=== PATIENT | male | born 1970 | race Caucasian/White ===

== ENCOUNTER 2019-05-29 10:44 | Emergency (ER) | payer MEDICAID ==
[~2019-05-29] VITALS: Ht 180 cm; Wt 109.0 kg
[2019-05-29] MEDS ORDERED: LIDOCAINE 1% INJ 20 ML 20 ML VIAL ONE ×2 (10:59→11:11)
[2019-05-29] MEDS ORDERED: HYDROcodone/APAP 5 MG/325 MG (LORTAB) TAB PO ONE (11:30)
--- NOTE | 2019-05-29 12:13 | ED Upper Extremity ---
General Chief Complaint: Upper Extremity Stated Complaint: LT FINGER INJ Nursing Triage Note: PT SHUT HIS LEFT 4TH FINGER IN THE CAR DOOR AND COULD NOT GET THE DOOR OPEN SO HE HAD TO PULL HIS FINGER OUT OF THE SHUT DOOR. THE FINGER IS LACERATED ACROSS THE NAIL. RING REMOVED FROM FINGER UPON ARRIVAL WITHOUT DIFFICULTY. Nursing Sepsis Screen: No Definite Risk History of Present Illness Date Seen by Provider: May 29, 2019 Time Seen by Provider: 12:08 Initial Comments Patient presenting to emergency department for evaluation of left ring finger trauma sustained after the distal tip was crushed in a car door shortly prior to arrival. He says his tetanus is up-to-date. Allergies and Home Medications Allergies Coded Allergies: egg (Verified Allergy, Unknown, 05/29/19) tramadol (Verified Allergy, Unknown, 05/29/19) Patient Home Medication List Home Medication List Reviewed: Yes Review of Systems Constitutional: no symptoms reported Skin: other (fingernail laceration as well as distal finger laceration) Psychiatric/Neurological: Numbness (to distal finger) Past Ffelqkg-Ugwklg-Anabig Hx Patient Social History Alcohol Use: Occasionally Uses Recreational Drug Use: No Smoking Status: Current Everyday Smoker Type Used: Cigarettes 2nd Hand Smoke Exposure: Yes Recent Foreign Travel: No Contact w/Someone Who Travel: No Recent Infectious Disease Expo: No Recent Hopitalizations: No Physical Abuse: No Sexual Abuse: No Mistreated: No Fear: No Seasonal Allergies Seasonal Allergies: Yes Past Medical History Surgeries: Yes (EYES REMOVED BILATERALLY D/T DEGENERATIVE ISSUES) Eye Surgery, Orthopedic Respiratory: Yes Asthma Cardiac: No Neurological: No Genitourinary: No Gastrointestinal: No Musculoskeletal: No Endocrine: No HEENT: Yes (BLIND BILATERALLY) Cancer: No Psychosocial: No Integumentary: No Blood Disorders: No Physical Exam Vital Signs Vital Signs - First Documented 05/29/19 11:01 Temp 37.2 Pulse 78 Resp 18 B/P (MAP) 153/81 (105) Pulse Ox 98 O2 Delivery Room Air Capillary Refill : Less Than 3 Seconds Height, Weight, BMI Height: '" Weight: lbs. oz. kg; 33.00 BMI Method: General Appearance: WD/WN, no apparent distress Hand: laceration, nail injury Neurologic/Tendon: normal tendon functions, no evidence tendon injury; No motor deficit; sensory deficit (numbness to the fingertip) Neurologic/Psychiatric: alert, oriented x 3 Skin: other (nail is completely avulsed at the nailbed with nail almost completely removed except for the distal tip. There is complete nailbed laceration as well. Fingertip has a laceration laterally as well approximately 1 cm in length.) Procedures/Interventions Wound Location: Upper Extremities Other Wound Location There is a 1 cm nailbed laceration as well as a 1 cm fingertip laceration Wound Length (cm): 2 Wound's Depth, Shape: irregular Wound Explored: wound appeared fairly clean with no foreign body or deeper structures visualized Irrigated w/ Saline (ccs): 1000 Betadine Prep?: Yes Anesthesia: 1% Lidocaine (nerve block used to anesthetize wound) Volume Anesthetic (ccs): 5 Wound Debrided: moderate (fingernail removed as it was damaged and could not be repaired and) Suture: Monocryl (250 sutures for fingertip), Vicryl (to 4 sutures for nailbed) Suture Size: 4-0, 5-0 Number of Sutures: 4 Layer Closure?: 1 Sterile Dressing Applied?: Yes Progress Wound prepped and draped in normal sterile fashion and anesthetized using 5 cc of 1% lidocaine for a digital block. Wound was cleansed vigorously with chlorhexidine and irrigation. Nailbeds closed after nail was removed and then fingertip was repaired. No complications noted. Progress/Results/Core Measures Results/Orders My Orders Orders - COLLINS SERRATO DO Lidocaine 1% Inj 20 Ml (Xylocaine 1% Inj (05/29/19 10:59) Lidocaine 1% Inj 20 Ml (Xylocaine 1% Inj (05/29/19 11:11) Finger(S) (05/29/19 11:27) Hydrocodone/Apap 5/325 Tablet (Lortab 5 (05/29/19 11:30) Medications Given in ED Current Medications Medications Dose Ordered Sig/Yanick Route Start Time Stop Time Status Last Admin Dose Admin Acetaminophen/ Hydrocodone Bitart 2 tab ONCE ONCE PO 05/29/19 11:30 05/29/19 11:31 DC 05/29/19 11:37 2 TAB Lidocaine HCl 20 ml STK-MED ONCE .ROUTE 05/29/19 10:59 05/29/19 11:01 DC 05/29/19 11:36 20 ML Vital Signs/I&O 05/29/19 11:01 Temp 37.2 Pulse 78 Resp 18 B/P (MAP) 153/81 (105) Pulse Ox 98 O2 Delivery Room Air Blood Pressure Mean: 105 POS Progress Progress Note : Progress Note Patient has some anesthesia to his distal fingertip but otherwise is neurovascular intact with no obvious signs of tendon damage. He does have a fracture and this be considered an open fracture so he'll be placed on Keflex and told to keep his wound clean and dry. He was told to follow primary care provider and/or orthopedics within 2-3 days for recheck. Patient aware and agreeable with plan for discharge and verbalized understanding of the need for short-term follow-up and strict ED return precautions discussed including worsening pain signs of infection or other general concerns. Departure Impression Primary Impression: Fracture, finger, distal phalanx, open Additional Impressions: Fingernail avulsion, complete Fingertip avulsion Disposition: 01 HOME, SELF-CARE Condition: Stable Departure-Patient Inst. Referrals: ALTAGRACIA VALENZUELA MD (PCP/Family) Primary Care Physician Patient Instructions: Nail Avulsion, Hand Fracture (DC) Add. Discharge Instructions: All discharge instructions reviewed with patient and/or family. Voiced understanding. Have sutures removed in 1 week. Follow with ortho and/or PCP for wound recheck. Thank you! Scripts Hydrocodone/Acetaminophen ([place] 5-325 Tablet) 1 Each Tablet 1 TAB PO Q6H for Pain MDD 10 TABS for 7 Days, #14 TAB Prov: COLLINS SERRATO DO 05/29/19 Cephalexin (Keflex) 500 Mg Capsule 500 MG PO TID for 7 Days, CAP Prov: COLLINS SERRATO DO 05/29/19 COLLINS SERRATO DO May 29, 2019 12:13 POS
[2019-05-29] MEDS ORDERED: HYDR-4226 PO (12:18)
[2019-05-29] MEDS ORDERED: CEPH-507 PO (12:18)
[2019-05-29 12:20] VITALS: BP 137/75
--- NOTE | 2019-05-29 12:41 | Diagnostic Imaging Report ---
INDICATION: Laceration, pain. COMPARISON: None available. TECHNIQUE: Three radiographs centered upon the left hand fourth digit are obtained dated May 29, 2019. FINDINGS: Comminuted fracturing of the tuft of the fourth digit distal phalanx is present. There is associated slight medial displacement of the main fracture fragment. Overlying soft tissue injury is noted. No associated suspicious radiopaque foreign body. No additional fracture or dislocation. No destructive osseous process. IMPRESSION: Acute mildly displaced comminuted fracturing involving the tuft of the fourth digit distal phalanx with associated overlying soft tissue injury without suspicious radiopaque foreign body. CRITICAL FINDINGS Report was called/faxed to [facility] by tiff at 12:39 p.m. Dictated by: Dictated on workstation # [id number]
== END 2019-05-29 12:27 | disposition home or self-care (01) ==
LOC: EDUNIT# 10:44 → ER FS 10:45
DX: S62.635B Displaced fracture of distal phalanx of left ring finger, initial encounter for open fracture (principal); J45.909 Unspecified asthma, uncomplicated; Z88.5 Allergy status to narcotic agent; W23.1XXA Caught, crushed, jammed, or pinched between stationary objects, initial encounter
CPT/HCPCS: 11720; 12041; 64450; 73140

== ENCOUNTER → 2020-05-27 | Outpatient (CLI) | payer MEDICAID ==
[~2020-05-27] MED LIST: CEPH-507 PO; HYDR-4226 PO
--- NOTE | 2020-05-27 15:43 | Diagnostic Imaging Report ---
INDICATION: Pain status post injury. COMPARISON: None. FINDINGS: Three views of the left foot demonstrate no acute fracture or dislocation. There are no focal osseous lesions. There is no soft tissue swelling. Joint spaces are well maintained. No radiopaque foreign bodies are seen. IMPRESSION: No acute fractures or dislocations of the left foot. Dictated by: Dictated on workstation # [id number]
== END ==
LOC: RAD FS 15:14
PROVIDERS: ATTEND Nurse Practitioner Family
DX: S99.922D Unspecified injury of left foot, subsequent encounter (principal); X58.XXXD Exposure to other specified factors, subsequent encounter
CPT/HCPCS: 73630